=== PATIENT | male | born 1985 | race Caucasian/White ===

== ENCOUNTER 2016-07-27 03:52 | Emergency (ER) | payer OTHER ==
[~2016-07-27] VITALS: Ht 182.9 cm; Wt 64.0 kg
[2016-07-27 04:01] VITALS: TEMP 36.7; Ht 182.9 cm; Wt 64.0 kg
[2016-07-27] MEDS ORDERED: NORCO 5/325MG HOME PACK PO ONE (04:45)
[2016-07-27 05:01] VITALS: BP 116/63; PULSE 70; O2SAT 99
--- NOTE | 2016-07-27 05:09 | EMERGENCY ROOM VISIT NOTE ---
ED Visit Note First contact with patient: 04:04 CHIEF COMPLAINT: Foot pain HISTORY OF PRESENT ILLNESS: This 31-year-old male patient presents to the emergency department complaining of swelling and pain in the left foot at rest and worse with weight bearing. The patient [place] about 12 hours ago. He competed in several events without difficulty. He does not have distinct injury or trauma. No falls. The patient rates the pain as dull and 4/10. The patient has taken Tylenol x1 dose with mild relief of the pain. The patient is able to walk. No numbness or weakness. No ankle pain. There are no lacerations of the foot. The patient is able to move all of their toes and their ankle without pain. No previous fracture to this foot. REVIEW OF SYSTEMS: GENERAL: A 6 system review of systems was completed with positives and pertinent negatives in the HPI. ALLERGIES: No known allergies MEDICATIONS: See EMR PMH: See EMR SOCIAL HISTORY: Lives in [place] with family PHYSICAL EXAM: Vital Signs: Reviewed Nurse's notes, vital signs stable. GENERAL : White male, in no acute distress, but appears in pain, well-developed, well- nourished. MUSCULOSKELATAL: There is no visual deformity of the left foot. There is no erythema and no ecchymosis. There is no warmth. There is tenderness and swelling over the 5th metatarsal of the left foot. There is no tenderness over the lateral or medial malleolus. No tenderness of the tib/fib. The range of motion of the left foot is mildly limited secondary to pain. There is no tenderness over the plantar fascia. The skin is intact and there are no lacerations or puncture wounds. Dorsalis pedis pulse 2+. Capillary refill less than 2 seconds. EMERGENCY DEPARTMENT COURSE: I examined the patient. An X-ray of the left foot was reviewed by myself and my attending without obvious fracture or dislocation. The patient will be placed in a postop shoe and given crutches. He'll be given a home pack of Vicodin. He is to follow with his primary care physician upon returning home with any ongoing or persistent symptoms. Current/Historical Medications No Active Prescriptions or Reported Meds Allergies Coded Allergies: No Known Allergies (Unverified , 07/27/16) Vital Signs Date Time Temp Pulse Resp B/P (MAP) Pulse Ox O2 Delivery O2 Flow Rate FiO2 07/27/16 05:01 70 16 116/63 99 07/27/16 04:01 36.7 75 18 127/82 100 Room Air Departure Information Impression Primary Impression: Left foot pain Dispostion Home / Self-Care Condition GOOD Prescriptions No Active Prescriptions or Reported Meds Forms HOME CARE DOCUMENTATION FORM, IMPORTANT VISIT INFORMATION Patient Instructions [facility] Additional Instructions You were seen and evaluated today on an emergency basis only. This is not a substitute for, or an effort to provide, complete comprehensive medical care. It is not possible to recognize and treat all injuries or illnesses in a single emergency department visit. For this reason it is recommended that you followup with your primary care physician or with orthopedics for ongoing care and evaluation. For baseline pain relief you may alternate ibuprofen and acetaminophen every 4 hours for pain control. Take 600 mg ibuprofen (Advil) and then 4 hours later take 1000 mg acetaminophen (Tylenol). Do not take more than 3000 mg acetaminophen in a single day. [place] (hydrocodone/acetaminophen) 5/325 mg (homepack) every 6 hours as needed for worsening breakthrough pain. Do not drink or drive on [place]. This medication will likely make you tired. Do not take [place] and Tylenol at the same time as both contain acetaminophen. [place] may cause constipation. You may wish to take an [id number] stool softener like Colace if this occurs. Use your crutches and postop shoe for comfort. You are welcome to return to the emergency department anytime with new, worsening, or concerning symptoms.
--- NOTE | 2016-07-27 07:19 | DIAGNOSTIC IMAGING REPORT ---
LEFT FOOT 3 VIEWS HISTORY: left foot pain COMPARISON: None. FINDINGS: There is no fracture or dislocation. Soft tissues are unremarkable. No radiopaque foreign bodies. IMPRESSION: No fractures. Electronically signed by: Richard Lucas M.D. 07/27/2016 7:17 AM Dictated Date/Time: 07/27/2016 7:16 AM
== END 2016-07-27 05:02 | disposition home or self-care (01) ==
LOC: C.EDB 03:54
DX: M79.672 Pain in left foot (principal); M79.89 Other specified soft tissue disorders